=== PATIENT | male | born 1985 | race Caucasian/White ===

== ENCOUNTER 2019-12-05 18:33 | Emergency (ER) | payer SELFPAY ==
[~2019-12-05] VITALS: Ht 33 cm; Wt 0.5 kg
[2019-12-05] MEDS ORDERED: NALOXONE HCL 0.4 MG/ML VIAL ONE (18:42)
[2019-12-05] MEDS ORDERED: SODIUM CHLORIDE 0.9% 1,000 ML IV ONE (18:45)
[2019-12-05] MEDS ORDERED: NALOXONE HCL 0.4 MG/ML VIAL IV ONE (18:45)
[2019-12-05 19:20] LABS: Basophils # (auto) 0.1 10 ^3/uL (0-0.2); Basophils % (auto) 0.7 % (0.0-2.0); Eosinophils # (auto) 0.5 10 ^3/uL (0-0.8); Eosinophils % (auto) 5.3 % (0.0-7.0); Hematocrit 43.1 % (41.0-53.0); Hemoglobin 14.4 g/dL (13.5-17.5); Lymphocytes # (auto) 3.9 10 ^3/uL (0.4-5.4); Lymphocytes % (auto) 42.6 % (10.0-50.0); Mean Corpuscular Hgb Conc. 33.4 g/dL (32.0-36.0); Mean Corpuscular Volume 92.9 fL (80.0-100.0); Monocytes # (auto) 0.8 10 ^3/uL (0-1.3); Monocytes % (auto) 8.9 % (0.0-12.0); Neutrophils # (auto) 3.9 10 ^3/uL (1.6-8.6); Neutrophils % (auto) 42.5 % (37.0-80.0); Nucleated Red Blood Cells % 0.1 %; Platelet Count (auto) 361 10^3/uL (140-450); Red Blood Cells 4.64 10^6/uL (4.5-5.90); White Blood Cell 9.3 10^3/uL (4.4-10.8)
[2019-12-05 19:35] LABS: Albumin 3.9 g/dL (3.4-5.0); Anion Gap 13 (5-15); Blood Urea Nitrogen 25 mg/dL (7-18); Calcium 7.6 mg/dL (8.5-10.1); Carbon Dioxide 20 mmol/L (21-32); Chloride 105 mmol/L (98-107); Glucose 163 mg/dL (74-106); Sodium 138 mmol/L (136-145)
[2019-12-05 19:41] LABS: Alanine Aminotransferase 42 U/L (16-61); Alkaline Phosphatase 77 U/L (45-117); Aspartate Aminotransferase 39 U/L (15-37); BUN/Creatinine Ratio 15.4; Bilirubin, Total 0.3 mg/dL (0.2-1.0); GFR African American 63 mL/min; GFR Non-African American 52 mL/min; Total Protein 7.5 g/dL (6.4-8.2)
[2019-12-05] MEDS ORDERED: [UNRECOGNIZED DRUG - OTHER] INJ ONE (20:30)
[2019-12-05] MEDS ORDERED: FOLIC ACID INJ ONE (20:30)
[2019-12-05] MEDS ORDERED: MAGNESIUM SULF INJ ONE (20:30)
[2019-12-05] MEDS ORDERED: MULTIPLE VITAMIN INJ ONE (20:30)
[2019-12-05 20:33] LABS: Amphetamine Screen, Urine NEGATIVE (NEGATIVE); Barbiturate Scree,Urine NEGATIVE (NEGATIVE); Benzodiazephine Screen, Urine NEGATIVE (NEGATIVE); Cannabinoid Screen, Urine NEGATIVE (NEGATIVE); Cocaine Screen, Urine NEGATIVE (NEGATIVE); Opiate Scree,Urine POSITIVE (NEGATIVE); Phencyclidine Screen, Urine NEGATIVE (NEGATIVE)
[2019-12-05] MEDS ORDERED: POTASSIUM CHL 20 Meq TABLET PO ONE (21:45)
[2019-12-05 22:00] VITALS: BP 117/55
[2019-12-06] MEDS ORDERED: MAGNESIUM SULF INJ SCH (12:00)
[2019-12-06] MEDS ORDERED: [UNRECOGNIZED DRUG - OTHER] INJ SCH (12:00)
[2019-12-06] MEDS ORDERED: MULTIPLE VITAMIN INJ SCH (12:00)
[2019-12-06] MEDS ORDERED: FOLIC ACID INJ SCH (12:00)
== END 2019-12-05 23:00 | disposition home or self-care (01) ==
LOC: EDBD 18:33 → ER 18:36
DX: R41.0 Disorientation, unspecified (principal); G92 Toxic encephalopathy; F10.920 Alcohol use, unspecified with intoxication, uncomplicated; E87.6 Hypokalemia
CPT/HCPCS: 36415; 71045; 80053; 80307; 80320; 84484; 85025; 93005; 96361; 96365; 96375; 99285; J2310; J3475; J7030